=== PATIENT | male | born 1985 | race Caucasian/White ===

== ENCOUNTER 2017-11-20 20:19 | Emergency (ER) | payer OTHER ==
[~2017-11-20] VITALS: Ht 180.3 cm; Wt 106.6 kg
[2017-11-20 20:35] VITALS: BP 144/90
--- NOTE | 2017-11-20 20:38 | NUR ---
TO LOBBY A/W , ELSIE AWAN NOTED
--- NOTE | 2017-11-20 20:56 | NUR ---
PT TAKEN TO BED 8
--- NOTE | 2017-11-20 21:00 | NUR ---
PATIENT IS A 32 Y/O MALE WHO PRESENTS TO THE ED C/O FOR HEADACHE. PT REPORTS GETTING JYOTI TO BACK OF FOREHEAD AND REPORTS ZAMORA. PT REPORTS 8/10 ACHING HEADACHE PAIN THAT DOES NOT RADIATE. NOTED NO REDNESS OR DRAINAGE. PT DENIES CP, SOB, N/V/D. PT AAOX4, RR EVEN/UNLABORED. PT REPOSITIONED FOR COMFORT, BED IN LOWEST POSITION. ER NIXON SELLERS NOTIFIED. WILL CONTINUE TO MONITOR.
--- NOTE | 2017-11-20 21:18 | NUR ---
PA EVALUATING PATIENT
[2017-11-20 22:00] VITALS: BP 128/95
--- NOTE | 2017-11-20 22:00 | NUR ---
Patient discharged with v/s stable. Written and verbal after care instructions given and explained. Patient alert, oriented and verbalized understanding of instructions. Ambulatory with steady gait. All questions addressed prior to discharge. ID band removed. Patient advised to follow up with PMD. Rx of TYLENOL EXTRA STRENGTH 500MG given. Patient educated on indication of medication including possible reaction and side effects. Opportunity to ask questions provided and answered.
== END 2017-11-20 22:00 | disposition home or self-care (01) ==
LOC: MED 20:19
DX: G43.909 Migraine, unspecified, not intractable, without status migrainosus (principal); I10 Essential (primary) hypertension
CPT/HCPCS: 99282

== ENCOUNTER 2017-11-27 09:43 | Emergency (ER) | payer OTHER ==
[~2017-11-27] VITALS: Ht 180.3 cm; Wt 107.0 kg
[2017-11-27 10:01] VITALS: BP 125/75
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
--- NOTE | 2017-11-27 11:10 | NUR ---
PATIENT NOT IN THE ROOM IN TIME OF DISCHARGE. LEFT WITHOUT DISCHARGE INSTRUCTIONS.
== END 2017-11-27 11:10 | disposition left against medical advice (07) ==
LOC: MED 09:43
DX: S01.01XD Laceration without foreign body of scalp, subsequent encounter (principal); I10 Essential (primary) hypertension; H57.8 Other specified disorders of eye and adnexa; Z48.02 Encounter for removal of sutures; X58.XXXD Exposure to other specified factors, subsequent encounter
CPT/HCPCS: 99281

== ENCOUNTER 2018-02-19 06:45 | Emergency (ER) | payer OTHER ==
[~2018-02-19] VITALS: Ht 180.3 cm; Wt 106.6 kg
[2018-02-19 06:49] VITALS: BP 133/109
--- NOTE | 2018-02-19 07:21 | NUR ---
32 y.o male came to the ED after leaving work due to N/V/D since Monday (02/17) morning. Pt states that he believes on Monday night he ate something bad, tacos, which has lead to his symptoms of N/V/D. Monday night diarrhea started and has continued thought this morning. Pt went to work this morning at 0300 and he had to leave around 0630 beaucse of the symptoms. His associated s/sx are hot flashes and dizziness. Pt's abs is soft, non-tender, active bowel sounds in all 4 quadrants. s1s2 heard. Lungs are clear bilaterally, no adventicious sounds. Pt denies fever, fatigue, epigastric pain. Pt denies previous medical hx.
[2018-02-19] MEDS ORDERED: ONDANSETRON 4 MG ODT PO ONE (07:45)
--- NOTE | 2018-02-19 07:48 | NUR ---
DR TRUONG EVALUATING AT BEDSIDE
[2018-02-19] MEDS ORDERED: KETOROLAC 60 MG/2 ML VIAL IM ONE (07:50)
[2018-02-19 08:05] VITALS: BP 129/97
--- NOTE | 2018-02-19 08:09 | NUR ---
d/c pt home, left in personal vehicle. Went over discharge pack with pt, educated on s/sx of dx, medication and upon s/sx of when to call PCP, come to ED, and call 911. Pt stated the medication given made him feel much better. Answered all pt questions and pt denied further questions at this time. Pt ambulated to exit. Left with Rx: Zofran 8mg tab and Motrin 800mg tab
== END 2018-02-19 08:09 | disposition home or self-care (01) ==
LOC: MED 06:45
DX: R10.13 Epigastric pain (principal); R11.2 Nausea with vomiting, unspecified; R19.7 Diarrhea, unspecified; R42 Dizziness and giddiness; I10 Essential (primary) hypertension
CPT/HCPCS: 96372; 99283; J1885; S0119

== ENCOUNTER 2018-08-07 08:45 | Emergency (ER) | payer OTHER ==
[~2018-08-07] VITALS: Ht 180.3 cm; Wt 106.6 kg
[2018-08-07 08:49] VITALS: BP 139/63
--- NOTE | 2018-08-07 08:58 | NUR ---
PATIENT PRESENTS TO ED WITH accompanied by spouse c/o throat pain upon swallowing also burning pain to ou with crust build up this morning denies recent injury or exposure to fumes or fb . DENIES N/V/D; SKIN IS PINK/WARM/DRY; AAOX4 WITH EVEN AND STEADY GAIT; LUNGS CLEAR BL; HR EVEN AND REGULAR; PT DENIES ANY FEVER, CP, SOB, OR COUGH AT THIS TIME; PATIENT STATES PAIN OF 8/10 AT THIS TIME; VSS; PATIENT POSITIONED FOR COMFORT; HOB ELEVATED; BEDRAILS UP X2; BED DOWN. ER MD MADE AWARE OF PT STATUS.
[2018-08-07] MEDS ORDERED: ALBUTEROL SULFATE/IPRATROPIU 3 ML SOL IH ONE (09:10)
[2018-08-07] MEDS ORDERED: cefTRIAXone 1,000 MG in LIDOCAINE 1% ***ER ONLY *** 2.1 ML IM ONE (09:10)
[2018-08-07] MEDS: DEXAMETHASONE 10 MG/ML VIAL IM ONE ×2 (09:31→09:34)
--- NOTE | 2018-08-07 09:31 | NUR ---
XRAY AT BEDSIDE
[2018-08-07] MEDS ORDERED: cefTRIAXone 1,000 MG VIAL ONE (09:39)
[2018-08-07] MEDS ORDERED: LIDOCAINE MPF 1% 5mL VIAL ONE (09:40)
[2018-08-07 10:44] VITALS: BP 121/61
--- NOTE | 2018-08-07 10:44 | NUR ---
Patient discharged with v/s stable. Written and verbal after care instructions given and explained. Patient alert, oriented and verbalized understanding of instructions. Ambulatory with steady gait. All questions addressed prior to discharge. ID band removed. Patient advised to follow up with PMD. Rx of PREDNISONE,AZITHROMYCIN, ERYTHROMYCIN OINT, PROMETHAZINE given. Patient educated on indication of medication including possible reaction and side effects. Opportunity to ask questions provided and answered.
== END 2018-08-07 10:44 | disposition home or self-care (01) ==
LOC: MED 08:45
DX: J40 Bronchitis, not specified as acute or chronic (principal); H10.9 Unspecified conjunctivitis; J06.9 Acute upper respiratory infection, unspecified; I10 Essential (primary) hypertension; F17.200 Nicotine dependence, unspecified, uncomplicated; F12.10 Cannabis abuse, uncomplicated
CPT/HCPCS: 71045; 87804; 94640; 96372; 99284; J0696; J1100; J2001; J7620; Q0092

== ENCOUNTER 2018-08-24 17:40 | Emergency (ER) | payer OTHER ==
[~2018-08-24] VITALS: Ht 180.3 cm; Wt 106.1 kg
[2018-08-24 17:49] VITALS: BP 147/77
--- NOTE | 2018-08-24 18:57 | NUR ---
patient ambulated to bed 9
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
--- NOTE | 2018-08-24 19:12 | NUR ---
ASSUMED CARE OF PT FROM DARRION GALLARDO
--- NOTE | 2018-08-24 19:14 | NUR ---
REPORT GIVEN TO DARRION WILSON AND DARRION COBIAN FOR CONTINUATION OF CARE
--- NOTE | 2018-08-24 19:25 | NUR ---
DR PARIS AT BEDSIDE EVALUATING PT
[2018-08-24] MEDS ORDERED: BACITRACIN OINT 500 UNITS/GM PKT TP ONE (19:40)
[2018-08-24 20:20] VITALS: BP 139/80
== END 2018-08-24 20:21 | disposition home or self-care (01) ==
LOC: MED 17:40
DX: S50.811A Abrasion of right forearm, initial encounter (principal); I10 Essential (primary) hypertension; W22.8XXA Striking against or struck by other objects, initial encounter; Y93.89 Activity, other specified; Y92.89 Other specified places as the place of occurrence of the external cause; Y99.8 Other external cause status
CPT/HCPCS: 90471; 90715; 99283

== ENCOUNTER 2018-10-26 15:28 | Emergency (ER) | payer OTHER ==
[~2018-10-26] VITALS: Ht 180.3 cm; Wt 101.2 kg
[2018-10-26 15:37] VITALS: BP 142/87
--- NOTE | 2018-10-26 16:01 | NUR ---
PT TO ED WITH C/O LACERATION FROM BIZTALK ARCHITECT X TODAY AT 1400. APPROX 3CM LACERATION NOTED TO L LEG, WITH CONTROLLED BLEEDING. LAST TETANUS - 08/14/18. PT HAS +ROM TO LEG, CMS INTACT. PT PLACED INTO BED, PENDING MD RECIO.
--- NOTE | 2018-10-26 16:21 | NUR ---
Dr. Macias evaluating patient at bedside.
--- NOTE | 2018-10-26 16:30 | NUR ---
LAC TRAY SET UP AT PTS BED SIDE
[2018-10-26] MEDS ORDERED: NEOMYCIN/POLYMYXIN/BACITRACIN 0.9 GM/1 PKT TP ONE (16:55)
[2018-10-26] MEDS ORDERED: cefTRIAXone 1,000 MG in LIDOCAINE 1% ***ER ONLY *** 2.1 ML IM ONE (16:55)
[2018-10-26] MEDS ORDERED: LIDOCAINE 1% 500 MG/50 ML VIAL INJ ONE (16:55)
[2018-10-26] MEDS ORDERED: HYDROcodone/APAP 5/325 MG 1 TAB TAB PO ONE (16:55)
[2018-10-26] MEDS ORDERED: LIDOCAINE MPF 1% - 5 mL VIAL 10 ML ONE (17:10)
[2018-10-26] MEDS ORDERED: cefTRIAXone 1,000 MG VIAL ONE (17:11)
[2018-10-26 17:29] VITALS: BP 138/80
--- NOTE | 2018-10-26 17:31 | NUR ---
Patient discharged with v/s stable. Written and verbal after care instructions given and explained. Patient alert, oriented and verbalized understanding of instructions. Ambulatory with steady gait. All questions addressed prior to discharge. ID band removed. Patient advised to follow up with PMD. Rx of KEFLEX, MOTRIN given. Patient educated on indication of medication including possible reaction and side effects. Opportunity to ask questions provided and answered.
== END 2018-10-26 17:31 | disposition home or self-care (01) ==
LOC: MED 15:28
DX: S81.811A Laceration without foreign body, right lower leg, initial encounter (principal); I10 Essential (primary) hypertension; W27.8XXA Contact with other nonpowered hand tool, initial encounter; Y93.89 Activity, other specified; Y92.89 Other specified places as the place of occurrence of the external cause; Y99.8 Other external cause status
CPT/HCPCS: 12001; 99283; J0696; J2001

== ENCOUNTER 2018-12-10 13:11 | Emergency (ER) | payer SELFPAY ==
[~2018-12-10] VITALS: Ht 180.3 cm; Wt 99.3 kg
[2018-12-10 13:17] VITALS: BP 131/81
--- NOTE | 2018-12-10 13:21 | NUR ---
PT TAKEN TO BED 1.
--- NOTE | 2018-12-10 13:30 | NUR ---
dr dodd at bedside
[2018-12-10] MEDS ORDERED: KETOROLAC 60 MG/2 ML VIAL IM ONE (13:35)
--- NOTE | 2018-12-10 13:46 | NUR ---
pt bib self c/o lower back pain s/p working today. 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 no brusing or redness noted to affected area. pt ambulatory , even steady gait, laying in bed positioned to comfort.
[2018-12-10 14:05] VITALS: BP 127/79
--- NOTE | 2018-12-10 14:05 | NUR ---
Patient discharged with v/s stable. Written and verbal after care instructions given and explained. Patient alert, oriented and verbalized understanding of instructions. Ambulatory with steady gait. All questions addressed prior to discharge. ID band removed. Patient advised to follow up with PMD. Rx of motrin, norco given. Patient educated on indication of medication including possible reaction and side effects. Opportunity to ask questions provided and answered. pt instructed to not drive after taking norco as it may impair driving.
== END 2018-12-10 14:05 | disposition home or self-care (01) ==
LOC: MED 13:11
DX: M54.5 Low back pain (principal); X50.0XXA Overexertion from strenuous movement or load, initial encounter; Y93.89 Activity, other specified; Y92.89 Other specified places as the place of occurrence of the external cause; Y99.8 Other external cause status
CPT/HCPCS: 96372; 99283; J1885

== ENCOUNTER 2019-02-20 05:15 | Emergency (ER) | payer SELFPAY ==
[~2019-02-20] VITALS: Ht 180.3 cm; Wt 99.1 kg
[2019-02-20 05:23] VITALS: BP 155/95
[2019-02-20] MEDS ORDERED: ONDANSETRON 4 MG ODT PO ONE (05:50)
[2019-02-20] MEDS ORDERED: KETOROLAC 60 MG/2 ML VIAL IM ONE (05:50)
[2019-02-20 06:09] VITALS: BP 155/95
== END 2019-02-20 06:09 | disposition home or self-care (01) ==
LOC: MED 05:15
DX: J11.1 Influenza due to unidentified influenza virus with other respiratory manifestations (principal); R11.2 Nausea with vomiting, unspecified; R19.7 Diarrhea, unspecified; F12.10 Cannabis abuse, uncomplicated; Z98.890 Other specified postprocedural states
CPT/HCPCS: 96372; 99283; J1885; Q0162

== ENCOUNTER 2019-04-20 22:45 | Emergency (ER) | payer SELFPAY ==
[~2019-04-20] VITALS: Ht 180.3 cm; Wt 99.3 kg
[2019-04-20 22:48] VITALS: BP 155/94
--- NOTE | 2019-04-20 22:55 | NUR ---
PT AMBULATED TO BED #3
[2019-04-20] MEDS ORDERED: LORazepam 2 MG/ML VIAL IVP ONE (23:00)
[2019-04-20] MEDS ORDERED: NACL 0.9% 1,000 ML IV ONE (23:00)
[2019-04-20] MEDS ORDERED: ONDANSETRON 4 MG/2 ML VIAL IVP ONE (23:00)
--- NOTE | 2019-04-20 23:18 | NUR ---
PATIENT PRESENTS TO ED C/O DEHYDRATION AND DIZZINESS WITH N/V. PT REPORTS HAVING A 3 DAY DRINKING BINGE DUE TO RECENT BREAKUP WITH LONGTIME GIRLFRIEND. PT SMELLS OF ALCOHOL. PT APPEARS TO HAVE FLAT BEHAVIOR. PT DENIES SI OR HI AT THIS TIME. FRIEND AT BEDSIDE. PT ABLE TO SPEAK FULL SENTENCES. PT APPEARS TO BE DEPRESSED. PT DOES NOT HAVE HX OF PSYCHE ISSUE. NKA NO PMH. DENIES N/V/D; SKIN IS PINK/WARM/DRY; AAOX4 WITH EVEN AND STEADY GAIT; LUNGS CLEAR BL; HR EVEN AND REGULAR; PT DENIES ANY FEVER, CP, SOB, OR COUGH AT THIS TIME; PATIENT STATES PAIN OF 0/10 AT THIS TIME; VSS; PATIENT POSITIONED FOR COMFORT; HOB ELEVATED; BEDRAILS UP X2; BED DOWN. ER MD MADE AWARE OF PT STATUS.
[2019-04-20 23:22] LABS: BASOPHILS % (AUTO) 0.7 % (0.0-2.0); EOSINOPHILS # (AUTO) 0.1 K/uL (0-0.4); EOSINOPHILS % (AUTO) 2.2 % (0.0-4.0); HEMATOCRIT 47.4 % (36-52); HEMOGLOBIN 15.7 g/dL (12.0-18.0); LYMPHOCYTES # (AUTO) 2.9 K/uL (2.0-11.5); LYMPHOCYTES % (AUTO) 46.6 % (20.5-51.1); MEAN CORPUSCULAR HEMOGLOBIN 28 pg (27-31); MEAN CORPUSCULAR HGB CONC 33 g/dL (33-37); MEAN CORPUSCULAR VOLUME 85.9 fL (80-94); MONOCYTES # (AUTO) 0.4 K/uL (0.8-1.0); MONOCYTES % (AUTO) 6.5 % (1.7-9.3); NEUTROPHILS # (AUTO) 2.7 K/uL (1.8-7.7); PLATELET COUNT (AUTO) 306 K/uL (140-450); RED BLOOD CELL COUNT(AUTO) 5.52 MIL/uL (4.20-6.10); RED CELL DISTRIBUTION WIDTH 14.3 % (11.6-13.7); WHITE BLOOD COUNT (AUTO) 6.1 K/uL (4.8-10.8)
[2019-04-20 23:37] LABS: ANION GAP 17.6 (8-16); CARBON DIOXIDE 25.5 mmol/L (21-32); POTASSIUM 4.1 mmol/L (3.5-5.1)
[2019-04-20 23:51] LABS: TOTAL BILIRUBIN 0.2 mg/dL (0.0-1.0)
--- NOTE | 2019-04-21 | NUR ---
Patient laying in bed, patient aao. Friend at bedside.
--- NOTE | 2019-04-21 00:18 | NUR ---
PT APPEARS TO BE IN NO DISTRESS AT THIS TIME. VSS. PT RESTING COMFORTABLY IN BED. WILL CONTINUE TO MONITOR.
[2019-04-21] MEDS ORDERED: ONDANSETRON 4 MG/2 ML VIAL IVP ONE (00:25)
[2019-04-21 00:40] VITALS: BP 121/80
--- NOTE | 2019-04-21 00:40 | NUR ---
PT APPEARS TO BE IN NO DISTRESS. PT SMILING AND JOKING WITH FRIEND. PT AMBULATORY WITH STEADY GAIT TO RESTROOM. PT GIVEN DC PAPERWORK. ALLOWED TIME TO ASK QUESTIONS. ALL QUESTIONS ANSWERED. IV TAKEN OUT. Patient discharged with v/s stable. Written and verbal after care instructions given and explained. Patient verbalized understanding. Ambulatory with steady gait. All questions addressed prior to discharge. Advised to follow up with PMD.
== END 2019-04-21 00:40 | disposition home or self-care (01) ==
LOC: MED 22:45
DX: F10.129 Alcohol abuse with intoxication, unspecified (principal); E86.0 Dehydration; R11.10 Vomiting, unspecified
CPT/HCPCS: 36415; 80053; 85025; 96361; 96374; 96375; 96376; 99283; G0482; J2060; J2405

== ENCOUNTER 2020-01-29 11:22 | Emergency (ER) | payer SELFPAY ==
[~2020-01-29] VITALS: Ht 180.3 cm; Wt 104.3 kg
[2020-01-29 11:24] VITALS: BP 126/97
--- NOTE | 2020-01-29 11:49 | NUR ---
34 YO MALE CO RIGHT EYE PAIN WITH REDNESS AND SWELLING. NO DISCHARGE OR EXCESSIVE TEARING. SCELERA IS WHITE WITH NO REDNESS NOTED. PERRLA. VISUAL ACUITY IS 20/15 IN BOTH EYES WITH GLASSES. PT ALSO HAS SMALL RED RASH LIKE SPOTS ON BOTH LEGS.
[2020-01-29 12:20] VITALS: BP 126/97
--- NOTE | 2020-01-29 12:21 | NUR ---
Patient discharged with v/s stable. Written and verbal after care instructions given and explained. Patient verbalized understanding. Ambulatory with steady gait. All questions addressed prior to discharge. Advised to follow up with PMD.
== END 2020-01-29 12:21 | disposition home or self-care (01) ==
LOC: MED 11:22
DX: H00.013 Hordeolum externum right eye, unspecified eyelid (principal); I10 Essential (primary) hypertension
CPT/HCPCS: 99281

== ENCOUNTER 2020-04-28 16:22 | Emergency (ER) | payer MEDICAID ==
[~2020-04-28] VITALS: Ht 180.3 cm; Wt 99.8 kg
[2020-04-28 16:29] VITALS: BP 157/89
--- NOTE | 2020-04-28 16:34 | NUR ---
WAIT AT LOBBY. HANDED ON URINE CUP.
--- NOTE | 2020-04-28 17:20 | NUR ---
PT AMBULATED TO BED 12
--- NOTE | 2020-04-28 17:30 | NUR ---
PT STATES HE HAD N/V/D AFTER THANKSGIVING MEAL, NOW FEELS WELL AND IS JUST HERE TO GET A NOTE FOR OKAY TO RETURN TO WORK.
--- NOTE | 2020-04-28 17:56 | NUR ---
Patient discharged with v/s stable. Written and verbal after care instructions given and explained. Patient alert, oriented and verbalized understanding of instructions. Ambulatory with steady gait. All questions addressed prior to discharge. ID band removed. Patient advised to follow up with PMD. Rx of LOPERAMIDE AND ZOFRAN given. Patient educated on indication of medication including possible reaction and side effects. Opportunity to ask questions provided and answered.
[2020-04-28 18:14] VITALS: BP 157/89
== END 2020-04-28 17:56 | disposition home or self-care (01) ==
LOC: MED 16:22
DX: R19.7 Diarrhea, unspecified (principal); I10 Essential (primary) hypertension
CPT/HCPCS: 99283

== ENCOUNTER 2020-09-15 09:21 | Emergency (ER) | payer MEDICAID, OTHER ==
[~2020-09-15] VITALS: Ht 180.3 cm; Wt 111.8 kg
[2020-09-15 09:40] VITALS: BP 143/91
--- NOTE | 2020-09-15 09:46 | NUR ---
PATIENT AMBULATED TO BED 5.
--- NOTE | 2020-09-15 09:49 | NUR ---
Dr. Horne is evaluating the patient at bedside.
[2020-09-15] MEDS ORDERED: diazePAM 5 MG TAB PO ONE (09:55)
[2020-09-15] MEDS ORDERED: KETOROLAC 30 MG/ML VIAL IM ONE (09:55)
--- NOTE | 2020-09-15 10:00 | NUR ---
35 Y/O MALE C/O LOWER BACK PAIN 03/07 DESCRIBES SHARP RADIATING TO RIGHT THIGH X1DAY. PT DENIES TRAUMA/INJURY, DENIES N/V, DENIES FEVER/CHILLS. DENIES PMH NKA
--- NOTE | 2020-09-15 10:11 | NUR ---
Pt ambulated to restroom with a steady gait.
--- NOTE | 2020-09-15 10:14 | NUR ---
Pt ambulated to ER bed 5 with a steady gait.
--- NOTE | 2020-09-15 10:43 | NUR ---
Lacy calderón in [facility] - 09/15/20 at 1046 by [email or web address] Patient ambulated to bed 5. RN evaluating the patient at bedside.
--- NOTE | 2020-09-15 10:46 | NUR ---
Dr. Horne is reevaluating the patient at bedside.
[2020-09-15] MEDS ORDERED: IBUP-2213 PO (10:49)
[2020-09-15] MEDS ORDERED: CYCL10TA33 PO (10:49)
--- NOTE | 2020-09-15 11:06 | NUR ---
Patient discharged with v/s stable. Written and verbal after care instructions given and explained. Patient alert, oriented and verbalized understanding of instructions. Ambulatory with steady gait. All questions addressed prior to discharge. ID band removed. Patient advised to follow up with PMD. Rx of CYCLOBENZAPRINE 10MG TID PO PRN SPASMS, AND IBUPROFEN 600MG Q6H PO PRN PAIN given. Patient educated on indication of medication including possible reaction and side effects. Opportunity to ask questions provided and answered.
== END 2020-09-15 11:06 | disposition home or self-care (01) ==
LOC: MED 09:21
DX: M54.41 Lumbago with sciatica, right side (principal); I10 Essential (primary) hypertension
CPT/HCPCS: 81002; 96372; 99283; J1885

== ENCOUNTER 2020-09-28 18:19 | Emergency (ER) | payer SELFPAY ==
[~2020-09-28] VITALS: Ht 180.3 cm; Wt 104.3 kg
[~2020-09-28 18:19] MED LIST: CYCL10TA33 PO; IBUP-2213 PO
[2020-09-28 18:31] VITALS: BP 159/82
--- NOTE | 2020-09-28 19:15 | NUR ---
RECEIVED REPORT FROM DARRION PATRICIA FOR TRANSFER OF CARE.
--- NOTE | 2020-09-28 19:40 | NUR ---
35 y/o male presented to ED c/o chest pain that initially started on the left shoulder and has moved to his medial chest. Pt denies any injury to site. Pt describes pain as a pressure on his chest , rates pain 7/10. Pt denies nausea & vomitting butc/o of diarrhea. Pt appears calm, relaxed w/ even and unlabored breathing. cap refil < 3 sec. S1S2 noted. No edema present. Skin is pink, warm and dry. pt resting in bed, locked and in lowest position, HOB elevated , side rail x1. Pt connected to retail specialist, pulse ox and bp cuff. VSS. pmh: denies nka
--- NOTE | 2020-09-28 20:25 | NUR ---
20 G IV INSERTED IN LEFT HAND, BLOOD LABS DRAWN AND HANDED TO ADRIANA FROM LAB.
[2020-09-28] MEDS: ASPIRIN 325 MG TAB PO ONE (20:30)
[2020-09-28 20:35] LABS: BASOPHILS # (AUTO) 0.1 K/uL (0.00-0.22); BASOPHILS % (AUTO) 0.8 % (0.0-2.0); EOSINOPHILS # (AUTO) 0.4 K/uL (0-0.4); EOSINOPHILS % (AUTO) 6.3 % (0.0-4.0); HEMOGLOBIN 16.2 g/dL (12.0-18.0); LYMPHOCYTES # (AUTO) 2.8 K/uL (2.0-11.5); LYMPHOCYTES % (AUTO) 42.8 % (20.5-51.1); MEAN CORPUSCULAR HEMOGLOBIN 29 pg (27-31); MEAN CORPUSCULAR HGB CONC 33 g/dL (33-37); MEAN CORPUSCULAR VOLUME 86.3 fL (80-94); MONOCYTES # (AUTO) 0.5 K/uL (0.8-1.0); MONOCYTES % (AUTO) 7.4 % (1.7-9.3); NEUTROPHILS # (AUTO) 2.8 K/uL (1.8-7.7); NEUTROPHILS % (AUTO) 42.7 % (42.2-75.2); PLATELET COUNT (AUTO) 263 K/uL (140-450); RED BLOOD CELL COUNT(AUTO) 5.68 MIL/uL (4.20-6.10); RED CELL DISTRIBUTION WIDTH 14.1 % (11.6-13.7); WHITE BLOOD COUNT (AUTO) 6.6 K/uL (4.8-10.8)
[2020-09-28 20:51] LABS: ALBUMIN 3.9 g/dL (3.4-5.0); ANION GAP 14.1 (8-16); CARBON DIOXIDE 24.6 mmol/L (21-32); CREATININE 1.1 mg/dL (0.6-1.3); POTASSIUM 4.7 mmol/L (3.5-5.1); TOTAL BILIRUBIN 0.5 mg/dL (0.0-1.0)
--- NOTE | 2020-09-28 20:56 | NUR ---
PT C/O OF NO RELIEF W/ ASA MEDICATIONS , STATES PAIN 7/10 CHEST PAIN. ERMD MADE AWARE.
--- NOTE | 2020-09-28 21:10 | NUR ---
PT STATES HE WILL NOT BE DRIVING HIMSELF HOME , HE HAS A FAMILY MEMBER WHO CAN PICK HIM UP.
[2020-09-28] MEDS: HYDROcodone/APAP 5/325 MG 1 TAB TAB PO ONE (21:15)
[2020-09-28] MEDS: NITROGLYCERIN 0.4 MG TAB SL ONE (21:16)
--- NOTE | 2020-09-28 21:44 | NUR ---
PT STILL C/O OF 7/10 CHEST PAIN - ADMINISTERED 2ND DOSE OF NITROGLYCERIN AT THIS TIME.
--- NOTE | 2020-09-28 22:12 | NUR ---
PT STATES CHEST PAIN IS FEELING MUCH BETTER, RATES IT 5/10 AT THIS TIME. ERMD MADE AWARE.
--- NOTE | 2020-09-28 22:45 | NUR ---
IV removed, catheter intact and site benign. Applied folded 4x4 gauze and tape to stop bleeding.
[2020-09-28 22:49] VITALS: BP 144/70
== END 2020-09-28 22:49 | disposition home or self-care (01) ==
LOC: MED 18:19
DX: R07.9 Chest pain, unspecified (principal)
CPT/HCPCS: 36415; 71045; 80053; 83690; 83880; 84484; 85025; 93005; 99285

== ENCOUNTER 2020-11-10 08:23 | Emergency (ER) | payer MEDICAID ==
[~2020-11-10] VITALS: Ht 180.3 cm; Wt 106.6 kg
[2020-11-10 08:29] VITALS: BP 129/87
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
--- NOTE | 2020-11-10 08:45 | NUR ---
DR DUDLEY AT BEDSIDE EXAMINING PATIENT
[2020-11-10] MEDS ORDERED: TETRACAINE HCL/PF 0.5% OPTH 4 ML BTL OP ONE (08:55)
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
[2020-11-10] MEDS ORDERED: FLUORESCEIN OPTH STRIP 1 MG OP ONE (10:00)
[2020-11-10] MEDS ORDERED: NAPR-1704 PO (10:13)
[2020-11-10 10:24] VITALS: BP 129/87
== END 2020-11-10 10:23 | disposition home or self-care (01) ==
LOC: MED 08:23
DX: S02.85XA Fracture of orbit, unspecified, initial encounter for closed fracture (principal); H11.32 Conjunctival hemorrhage, left eye; I10 Essential (primary) hypertension; F12.90 Cannabis use, unspecified, uncomplicated; Z79.899 Other long term (current) drug therapy; Y04.2XXA Assault by strike against or bumped into by another person, initial encounter; Y93.89 Activity, other specified; Y92.89 Other specified places as the place of occurrence of the external cause; Y99.8 Other external cause status
CPT/HCPCS: 70480; 99284

== ENCOUNTER 2021-05-19 09:31 | Emergency (ER) | payer MEDICAID, OTHER ==
[~2021-05-19] VITALS: Ht 180.3 cm; Wt 114.5 kg
[~2021-05-19 09:31] MED LIST changes: +NAPR-1704 PO
[2021-05-19 09:38] VITALS: BP 136/89
--- NOTE | 2021-05-19 09:45 | NUR ---
PATIENT AMBULATED TO BED 11.
--- NOTE | 2021-05-19 09:56 | NUR ---
Dr. Mendez is evaluating pt at bedside
--- NOTE | 2021-05-19 10:01 | NUR ---
Dr. Mendez at bedside with Ultrasound
--- NOTE | 2021-05-19 10:10 | NUR ---
36 y/o M BIB self from home c/o nausea and and vomiting x 3 days. Patient A&Ox4, ambulatory, states vomiting 2 episodes per day. Denies vomiting or diarrhea today. States Powerade prior to arrival; denies meds. Denies fever, chills, SOB, chest pain, abdominal pain, diarrhea, constipation, dysuria. Bed locked in lowest position, side rails x 1. PMH/Sx/Meds: Denies NKDA
== END 2021-05-19 10:29 | disposition home or self-care (01) ==
LOC: MED 09:31
DX: R11.2 Nausea with vomiting, unspecified (principal); R10.11 Right upper quadrant pain; I10 Essential (primary) hypertension; F12.10 Cannabis abuse, uncomplicated
CPT/HCPCS: 99284

== ENCOUNTER 2022-01-11 06:54 | Emergency (ER) | payer SELFPAY ==
[~2022-01-11] VITALS: Ht 180.3 cm; Wt 106.6 kg
[2022-01-11 06:59] VITALS: BP 181/119
--- NOTE | 2022-01-11 07:06 | NUR ---
PT TAKEN TO BED 7
[2022-01-11] MEDS ORDERED: ATRO1TAB PO (07:33)
[2022-01-11] MEDS ORDERED: HYDR12.51 PO (07:33)
[2022-01-11] MEDS ORDERED: ONDA-188 PO (07:33)
--- NOTE | 2022-01-11 07:45 | NUR ---
36YO MALE PT C/O CRAMPING 2/10 UPPER TO MID ABDOMINAL PAIN X2 DAYS. PT STATES GOING SWIMMING AND DRINKING UNKNOWN WATER. PT STATES NAUSEA AND LOOSE WATERY DIARRHEA , DENIES VOMIT OR BLOOD. ABDOMEN NON DISTENDED OR TENDER TO TOUCH, ACTIVE X4. DENIES CHEST PAIN, SOB OR FEVERS. PT AAOX4, NO VISIBLE DISTRESS, RESPIRATIONS EVEN AND UNLABORED. HX:DENIES NKA
[2022-01-11] MEDS: ONDANSETRON 4 MG ODT PO ONE (07:51)
--- NOTE | 2022-01-11 08:02 | NUR ---
Patient discharged with v/s stable. Written and verbal after care instructions FOR VOMITING, HTN, DIARRHEA given and explained. Patient alert, oriented and verbalized understanding of instructions. Ambulatory with steady gait. All questions addressed prior to discharge. ID band removed. Patient advised to follow up with PMD. Rx of ZOFRAN, LOMOTIL, HYDROCHLOROIAZIDE given. Opportunity to ask questions provided and answered.
--- NOTE | 2022-01-11 08:02 | NUR ---
The patient's care was reviewed and supervised by Deepali Callahan RN.
== END 2022-01-11 08:02 | disposition home or self-care (01) ==
LOC: MED 06:54
DX: R11.2 Nausea with vomiting, unspecified (principal); R19.7 Diarrhea, unspecified; I10 Essential (primary) hypertension; Z79.899 Other long term (current) drug therapy
CPT/HCPCS: 99283; Q0162

== ENCOUNTER 2022-03-29 06:35 | Emergency (ER) | payer SELFPAY ==
[~2022-03-29] VITALS: Ht 180.3 cm; Wt 110.2 kg
[~2022-03-29 06:35] MED LIST changes: +ATRO1TAB PO; +HYDR12.51 PO; +ONDA-188 PO
[2022-03-29 06:45] VITALS: BP 136/89
--- NOTE | 2022-03-29 06:52 | NUR ---
PATIENT AMBULATED BACK TO [facility] IN STABLE CONDITION
[2022-03-29] MEDS ORDERED: CEPH-588 PO (07:05)
[2022-03-29 07:27] VITALS: BP 175/81
== END 2022-03-29 07:27 | disposition home or self-care (01) ==
LOC: MED 06:35
DX: L03.115 Cellulitis of right lower limb (principal); I10 Essential (primary) hypertension; Z79.899 Other long term (current) drug therapy
CPT/HCPCS: 99283

== ENCOUNTER 2022-05-28 07:39 | Emergency (ER) | payer MEDICAID ==
[~2022-05-28] VITALS: Ht 180.3 cm; Wt 110.7 kg
[~2022-05-28 07:39] MED LIST changes: +CEPH-588 PO
[2022-05-28 07:44] VITALS: BP 111/86
[2022-05-28] MEDS ORDERED: CEPH-588 PO (08:02)
[2022-05-28] MEDS ORDERED: KETOROLAC 15 MG/ML VIAL IM ONE (08:05)
--- NOTE | 2022-05-28 08:05 | NUR ---
37M presents to ED with c/o swelling to right side of neck. Pt reports 6/10 poking like pain only upon palpation of neck. Pt reports being sick with fevers, cough and throat swelling last week, symptoms have subsided this week, noticed a lump on right side of neck under the mandible three days ago. Pt denies med use, fevers or cold symptoms today.
== END 2022-05-28 08:18 | disposition home or self-care (01) ==
LOC: MED 07:39
DX: I88.9 Nonspecific lymphadenitis, unspecified (principal); I10 Essential (primary) hypertension; Z79.899 Other long term (current) drug therapy
CPT/HCPCS: 96372; 99283; J1885

== ENCOUNTER 2023-06-27 16:43 | Emergency (ER) | payer SELFPAY ==
[~2023-06-27] VITALS: Ht 180.3 cm; Wt 104.3 kg
[2023-06-27 16:53] VITALS: BP 154/77; PULSE 95; RESP 20; TEMP 96; O2SAT 96
[2023-06-27] MEDS ORDERED: CLIN300C2 PO (17:21)
[2023-06-27] MEDS ORDERED: IBUP-1842 PO (17:23)
[2023-06-27] MEDS ORDERED: ACET-10509 PO (17:23)
[2023-06-27 18:01] VITALS: BP 154/77; PULSE 95; RESP 20; TEMP 96; O2SAT 96
== END 2023-06-27 18:03 | disposition home or self-care (01) ==
LOC: MED 16:43
DX: L02.214 Cutaneous abscess of groin (principal); I10 Essential (primary) hypertension; Z79.899 Other long term (current) drug therapy
CPT/HCPCS: 99283